=== PATIENT | male | born 1990 | race Caucasian/White ===

== ENCOUNTER 2018-01-05 00:06 | Emergency (ER) | payer BC, OTHER ==
--- NOTE | 2018-01-05 00:18 | ED Physician Documentation ---
General Adult - HISTORIAN Historian: patient - HPI Stated Complaint: alcohol intoxication Chief Complaint: Altered Mental Status Onset: other (last drink was 30 min ago ) Timing: still present Severity: mild Further Comments: yes (Per mom at bedside she took him after 4 mikes hard lemonades and unknown amount of beer to [facility] to admit and they stated he was too intoxicated. He did fall after alcohol consumption two days ago and had a CT of his head due to the fall all findings per their report were negative. No further falls. Just taking him for treatment tonight) Last known Well Code/Unknown Code: Unknown - ROS CONST: no problems - PAST HX Past History: other (alcoholism ) Surgeries/Procedures: none Immunizations: UTD Allergies/Adverse Reactions: Allergies Allergy/AdvReac Type Severity Reaction Status Date / Time No Known Allergies Allergy Verified 01/05/18 00:53 Home Medications: Ambulatory Orders Medication Instructions Recorded NK [NK] 01/05/18 - SOCIAL HX Smoking History: cigarettes Alcohol Use: heavy Drug Use: other (denies ) - FAMILY HX Family History: No - REVIEWED ASSESSMENTS Nursing Assessment Reviewed: Yes Vitals Reviewed: Yes Progress - Progress Progress: 0020: Pt and family laughing in room. He is complaining of nausea DG 0115: more alert talking with family at bedside. Denies any complaints DG General Adult Physical Exam - PHYSICAL EXAM GENERAL APPEARANCE: no distress EENT: no signs of dehydration, [place], other (left eye with bruise swollen shut ) RESPIRATORY: no resp distress CVS: reg rate & rhythm, heart sounds normal ABDOMEN: soft, normal bowel sounds BACK: normal inspection SKIN: warm/dry, normal color EXTREMITIES: non-tender, normal range of motion, no edema NEURO: oriented X3 Discharge Clincal Impression: Alcohol abuse Comments: 1. Return to [facility] as planned 2. Return to ER for concerns 3. DO NOT DRINK Condition: Stable Disposition: 01 HOME, SELF-CARE Decision to Admit: NO Date of Decison to Admit: 01/05/18 Decision Time: 02:30
[2018-01-05] MEDS ORDERED: THIAMINE HCL 100 MG, MULTIVIT INFUSN,ADULT 1,VIT K 10 ML, FOLIC ACID 5 MG in 0.9 % SODI... IV ONE (00:19)
[2018-01-05] MEDS ORDERED: THIAMINE HCL 100 MG/ML 2ML VIAL ONE (00:30)
[2018-01-05] MEDS ORDERED: 0.9 % SODIUM CHLORIDE 1,000 ML IV ONE ×2 (00:30→01:14)
[2018-01-05] MEDS ORDERED: MULTIVIT INFUSN,ADULT 1,VIT K 10 ML VIAL IV ONE (00:30)
[2018-01-05] MEDS ORDERED: FOLIC ACID 5 MG/1 ML ONE (00:31)
[2018-01-05] MEDS ORDERED: ONDANSETRON HCL/PF 4 MG/ 2ML VIAL IVP ONE (00:35)
[2018-01-05] MEDS ORDERED: ONDANSETRON HCL/PF 4 MG/ 2ML VIAL ONE (00:38)
[2018-01-05 01:16] LABS: BASOPHILS % 0.6 (0.0-1.5); EOSINOPHILS % 1.1 % (0.0-6.8); MEAN CORPUSCULAR HEMOGLOBIN 30.4 pg (28.0-34.0); MEAN CORPUSCULAR VOLUME 89.8 fl (80.0-100.0); MONOCYTES % 5.9 % (0.0-11.0); NEUTROPHILS # 4.8 # k/uL (1.4-7.7)
[2018-01-05 01:18] LABS: eGFR (African) > 60; eGFR (Non-African) > 60
[2018-01-05 02:44] VITALS: BP 121/60
== END 2018-01-05 02:25 | disposition home or self-care (01) ==
LOC: ED 00:06
DX: F10.10 Alcohol abuse, uncomplicated (principal)
CPT/HCPCS: 80053; 80320; 85025; J2405; J3411; J3490; J7030; 96365; 96368; 96375; G0480; S1016